=== PATIENT | female | born 1990 | race Hispanic/Latino ===

== ENCOUNTER 2016-07-10 10:39 | Emergency (ER) | payer OTHER ==
[2016-07-10 10:54] VITALS: BP 110/43; PULSE 91; TEMP 98.4
--- NOTE | 2016-07-10 11:15 | ED PDOC ---
Lower Extremity Pain/Injury Time Seen by Provider: 07/10/16 11:00 Chief Complaint (Nursing): Lower Extremity Problem/Injury Chief Complaint (Provider): Lower Extremity Problem/Injury History Per: Patient History/Exam Limitations: no limitations Onset/Duration Of Symptoms: Hrs Current Symptoms Are (Timing): Still Present Severity: Mild Additional Complaint(s): 25 y/o female patient presenting to the ED with pain in her tailbone. Patient [place] she slipped and fell down 10 of the stairs. PT states she did not hit her head in the fall but felt a little "woozy". She says the pain was mild yesterday but when she woke up today it hurt to situp or laydown and bending made the pain worse. Patient states she is on no medications. Past Medical History Reviewed: Historical Data, Nursing Documentation, Vital Signs Vital Signs: Last Vital Signs Temp 98.4 F 07/10/16 10:53 Pulse 91 H 07/10/16 10:53 Resp BP 110/43 L 07/10/16 10:53 Pulse Ox 98 07/10/16 11:07 - Medical History PMH: No Chronic Diseases - Surgical History Surgical History: No Surg Hx - Family History Family History: States: No Known Family Hx - Social History Current smoker - smoking cessation education provided: No - Allergies Allergies/Adverse Reactions: Allergies Allergy/AdvReac Type Severity Reaction Status Date / Time No Known Allergies Allergy Verified 07/10/16 11:09 Review of Systems ROS Statement: Except As Marked, All Systems Reviewed And Found Negative Cardiovascular: Negative for: Chest Pain, Light Headedness Musculoskeletal: Positive for: Back Pain (tailbone) Neurological: Negative for: Weakness, Numbness, Confusion, Dizziness Physical Exam - Reviewed Nursing Documentation Reviewed: Yes Vital Signs Reviewed: Yes - Physical Exam Appears: Positive for: Non-toxic, No Acute Distress Head Exam: Positive for: ATRAUMATIC, NORMAL INSPECTION, NORMOCEPHALIC Skin: Positive for: Normal Color, Warm Eye Exam: Positive for: Normal appearance Neck: Positive for: Normal, Painless ROM Cardiovascular/Chest: Positive for: Regular Rate, Rhythm. Negative for: Murmur Respiratory: Positive for: Normal Breath Sounds. Negative for: Respiratory Distress Back: Positive for: Normal Inspection, Vertebral Tenderness (Coccyx ) Extremity: Positive for: Normal ROM. Negative for: Tenderness, Swelling Neurologic/Psych: Positive for: Alert, Oriented. Negative for: Motor/Sensory Deficits - Laboratory Results Urine POC: Negative - ECG O2 Sat by Pulse Oximetry: 98 (RA) Pulse Ox Interpretation: Normal - Radiology X-Ray: Viewed By Me X-Ray Interpretation: No Acute Disease Medical Decision Making Medical Decision Making: Time: 1109 Initial impression: Back Pain r/o fracture Initial plan: --ED URINE --ACETAMINOPHEN --SACRUM &/OR COCCYX Xray Scribe Attestation: Documented by Corinne Sykes training under Lata Payne acting as a scribe for Rosalinda Glass MD. Provider Scribe Attestation: All medical record entries made by the Scribe were at my direction and personally dictated by me. I have reviewed the chart and agree that the record accurately reflects my personal performance of the history, physical exam, medical decision making, and the department course for this patient. I have also personally directed, reviewed, and agree with the discharge instructions and disposition. Disposition - Clinical Impression Clinical Impression: Contusion - Patient ED Disposition Is Patient to be Admitted: No Doctor Will See Patient In The: Office Counseled Patient/Family Regarding: Diagnosis, Need For Followup, Rx Given - Disposition Referrals: [facility] [Outside] [facility] [Outside] Disposition: Routine/Home Disposition Time: 12:17 Condition: STABLE Instructions: Contusion in Adults (ED), Fall Prevention (ED) Forms: [email or web address] ([place]) - POA Present On Arrival: Falls Or Trauma
[2016-07-10 11:17] VITALS: O2SAT 98; BMI 18.2
--- NOTE | 2016-07-10 12:21 | RAD ---
HISTORY: slip[place] [address] [place] [address] [place] COMPARISON: No prior FINDINGS: BONES: Normal. No fracture. JOINTS: Normal. No osteoarthritis. SOFT TISSUE: Normal. OTHER FINDINGS: None . IMPRESSION: Normal Bone Xray.
== END 2016-07-10 12:59 | disposition home or self-care (01) ==
LOC: H.ER 10:39
DX: M54.9 Dorsalgia, unspecified (principal); W10.9XXA Fall (on) (from) unspecified stairs and steps, initial encounter; Y92.89 Other specified places as the place of occurrence of the external cause

== ENCOUNTER 2017-05-05 15:47 | Emergency (ER) | payer OTHER ==
[2017-05-05 15:48] VITALS: BMI 18.2
[2017-05-05 16:40] VITALS: O2SAT 100
[2017-05-05 18:48] LABS: BASO # 0.1 K/uL (0.0-0.2); EOS # 0.1 K/uL (0.0-0.7); EOS % 1.5 % (0.0-4.0); HEMOGLOBIN 13.2 g/dL (12.0-16.0); LYMPH # 2.1 K/uL (1.0-4.3); MEAN CELL VOLUME 94.4 fl (81.0-99.0); MEAN CORPUSCULAR HEMOGLOBIN 32.4 pg (27.0-31.0); MEAN CORPUSCULAR HGB CONC 34.3 g/dL (33.0-37.0); MEAN PLATELET VOLUME 8.7 fl (7.2-11.7); MONO # 0.7 K/uL (0.0-0.8); MONO % 9.9 % (0.0-10.0); NEUT # 4.3 K/uL (1.8-7.0); NEUT % 58.6 % (50.0-75.0); NRBC % 0.1 % (0.0-0.0); RBC 4.06 Mil/uL (3.80-5.20); RED CELL DISTRIBUTION WIDTH 12.6 % (11.5-14.5); WHITE BLOOD COUNT 7.4 K/uL (4.8-10.8)
[2017-05-05 19:03] LABS: ALB/GLOB RATIO 1.3 (1.0-2.1); ALBUMIN 4.4 g/dL (3.5-5.0); ALT/SGPT 24 U/L (9-52); AST/SGOT 21 U/L (14-36); BLOOD UREA NITROGEN 14 mg/dl (7-17); CALCIUM 9.5 mg/dL (8.4-10.2); GFR AFRICAN-AMERICAN > 60; GFR NON-AFRICAN AMERICAN > 60
[2017-05-05 19:21] LABS: PARTIAL THROMBOPLASTIN TIME 30.3 Seconds (25.6-37.1); PROTHROMBIN TIME 11.1 Seconds (9.8-13.1)
--- NOTE | 2017-05-05 20:32 | ED PDOC ---
HPI: Female Pain Time Seen by Provider: 05/05/17 17:21 Chief Complaint (Nursing): Female Genitourinary Chief Complaint (Provider): Vaginal bleeding History Per: Patient History/Exam Limitations: no limitations Onset/Duration Of Symptoms: Days (x1) Current Symptoms Are (Timing): Still Present Quality Of Discomfort: Cramping Associated Symptoms: Nausea (mild), Other (lightheadedness, exertional dyspnea) Additional Complaint(s): Dariel Rosales is a 26 year old female, with no significant past medical history, who presents to the emergency department for vaginal bleeding onset since yesterday. She reports heavy vaginal bleeding with clots and severe cramping. Patient also reports lightheadedness, exertional dyspnea, and mild nausea. Patient states this is the heaviest period she has ever had. Patient reports she is 4 days late and there is possibility she could be . She went to an urgent care center today who advised her to come to the ER for further evaluation. She reports at the urgent care the urine was negative for . Patient states prior to bleeding for about a week she was having some generalized weakness, fatigue, and decreased exercise tolerance. She denies any other medical complaints. PMD: None provided. Abnormal Vaginal Bleeding: Yes Past Medical History Reviewed: Historical Data, Nursing Documentation, Vital Signs Vital Signs: Last Vital Signs Temp 98.5 F 05/05/17 16:36 Pulse 86 05/05/17 16:36 Resp 20 05/05/17 16:36 BP 118/78 05/05/17 16:36 Pulse Ox 100 05/05/17 16:36 - Medical History PMH: No Chronic Diseases - Surgical History Other surgeries: Ear surgery - Family History Family History: States: Stroke, CAD, Diabetes, Hypertension - Social History Current smoker - smoking cessation education provided: No Alcohol: Social Drugs: Cannabis (occasional) - Immunization History Hx Tetanus Toxoid Vaccination: No Hx Influenza Vaccination: No Hx Pneumococcal Vaccination: No - Allergies Allergies/Adverse Reactions: Allergies Allergy/AdvReac Type Severity Reaction Status Date / Time lactose Allergy DIARRHEA Verified 05/05/17 16:35 Review of Systems ROS Statement: Except As Marked, All Systems Reviewed And Found Negative Cardiovascular: Positive for: Light Headedness Respiratory: Positive for: Other (exertional dyspnea) Gastrointestinal: Positive for: Nausea (mild), Abdominal Pain (cramp) Genitourinary Female: Positive for: Vaginal Bleeding Physical Exam - Reviewed Nursing Documentation Reviewed: Yes Vital Signs Reviewed: Yes - Physical Exam Appears: Positive for: Non-toxic Skin: Positive for: Pallor ENT: Positive for: Pharynx Is (clear), Other (moist mucus membranes) Neck: Positive for: Painless ROM, Supple Cardiovascular/Chest: Positive for: Regular Rate, Rhythm. Negative for: Murmur Respiratory: Positive for: Normal Breath Sounds. Negative for: Respiratory Distress Gastrointestinal/Abdominal: Positive for: Soft. Negative for: Tenderness, Mass , Distended, Guarding, Rebound Back: Positive for: Normal Inspection. Negative for: Decreased ROM Extremity: Positive for: Normal ROM. Negative for: Deformity Lymphatic: Negative for: Adenopathy Neurologic/Psych: Positive for: Alert. Negative for: Motor/Sensory Deficits - Laboratory Results Result Diagrams: 05/05/17 18:42 05/05/17 18:42 - ECG O2 Sat by Pulse Oximetry: 100 (RA) Pulse Ox Interpretation: Normal Medical Decision Making Medical Decision Making: Initial impression: vaginal bleeding. Differential includes but not limited to dysfunctional uterine bleeding, fibroids, threatened or miscarriage, coagulopathy Initial Plan: --Type and screen --Beta-HCG, Quantitative --CMP --Urine --Urine dipstick --CBC w/ differential --PTT --PT --Transvaginal [US] --Reevaluation EXAM: US Pelvis, Transvaginal CLINICAL HISTORY: The patient is a 26 years female; Pain and signs and symptoms; Menstruation abnormalities; Excessive menstruation; With regular cycle; Dysmenorrhea; Additional info: Severe heavy vaginal bleeding 05/05/2017 7:36 PM TECHNIQUE: Real-time transvaginal pelvic ultrasound (complete) with image documentation. Transvaginal imaging was used for better evaluation of the endometrium and adnexa. COMPARISON: No relevant prior studies available. FINDINGS: Uterus/cervix: Unremarkable. Normal endometrial stripe thickness. No myometrial mass. Right ovary: Unremarkable. No mass. Normal blood flow. Left ovary: Unremarkable. No mass. Normal blood flow. Free fluid: No free fluid. IMPRESSION: Normal pelvic ultrasound. Thank you for allowing us to participate in the care of your patient. Dictated and Authenticated by: Daily Lyons MD 05/05/2017 8:33 PM Eastern Time ([place] & [place]) Labs unremarkable. No findings that warrant admission to hospital or further ER management. Pt reports feeling better. DW pt findings and plan of care. Stable for dc with [employer] follow up. Scribe Attestation: Documented by Andrew Go, acting as a scribe for Christine Monique MD Provider Scribe Attestation: All medical record entries made by the Scribe were at my direction and personally dictated by me. I have reviewed the chart and agree that the record accurately reflects my personal performance of the history, physical exam, medical decision making, and the department course for this patient. I have also personally directed, reviewed, and agree with the discharge instructions and disposition. Disposition - Clinical Impression Clinical Impression: Abnormal vaginal bleeding - Disposition Referrals: Michel Blanca DO [Staff Provider] - (CALL TOMORROW TO SETUP FOLLOW UP APPOINTMENT WITHIN A WEEK) Disposition: Routine/Home Disposition Time: 22:10 Condition: STABLE Instructions: Heavy Periods (DC) Forms: [facility] ED School/Work Excuse
[2017-05-06 04:09] VITALS: BP 121/75; PULSE 81; RESP 16; TEMP 98.3
--- NOTE | 2017-05-06 09:06 | US ---
HISTORY: severe heavy vaginal bleeding COMPARISON: None available. TECHNIQUE: Grayscale, color Doppler and spectral evaluation of the pelvis performed transvaginally FINDINGS: UTERUS: Measures 6.9 x 4.7 x 2.7 cm. Anteverted. Normal in size and appearance. No fibroid or other mass lesion seen. ENDOMETRIUM: Measures 8 mm in diameter. Unremarkable. CERVIX: No cervical abnormality identified. RIGHT OVARY: Measures 3.3 x 2.9 x 3.0 cm. No solid mass. Normal flow. LEFT OVARY: Measures 3.3 x 2.3 x 1.9 cm. No solid mass. Normal flow. FREE FLUID: No significant free fluid noted. OTHER FINDINGS: None. IMPRESSION: Unremarkable pelvic ultrasound.
== END 2017-05-05 22:15 | disposition home or self-care (01) ==
LOC: H.ER 15:47
DX: N92.0 Excessive and frequent menstruation with regular cycle (principal); N94.6 Dysmenorrhea, unspecified; Z36.9 Encounter for antenatal screening, unspecified; Z82.49 Family history of ischemic heart disease and other diseases of the circulatory system